=== PATIENT | female | born 1950 | race Caucasian/White ===

== ENCOUNTER → 2016-10-10 | Outpatient (CLI) | payer BC, OTHER ==
[~2016-10-10] MED LIST: CALCIUM/D3 PO; CONJ0.3T3 PO; FOLI400T41 PO; LEVO112T2 PO; LEVO125T72 PO; LUTE20TA PO; MULT-506 PO; SULF500T36 PO
== END | disposition home or self-care (01) ==
LOC: C.PAPS 13:33
PROVIDERS: ATTEND Obstetrics & Gynecology
DX: Z01.419 Encounter for gynecological examination (general) (routine) without abnormal findings (principal)

== ENCOUNTER → 2017-05-02 | Outpatient (CLI) | payer BC, OTHER ==
--- NOTE | 2017-05-02 16:00 | MAMMOGRAPHY REPORT ---
BILATERAL DIGITAL SCREENING MAMMOGRAM WITH CAD: 05/02/2017 CLINICAL HISTORY: Routine screening. Patient has no complaints. TECHNIQUE: Bilateral CC and MLO views were obtained. Current study was also evaluated with a Compute r Aided Detection (CAD) system. COMPARISON: Comparison is made to exams dated: 04/30/2016 mammogram, 04/15/2015 mammogram, 04/14/2014 ma mmogram, 04/13/2013 mammogram, 04/07/2012 mammogram, and 04/05/2011 mammogram - [facility] er. BREAST COMPOSITION: The tissue of both breasts is heterogeneously dense, which may obscure small mas ses. FINDINGS: There is fluctuating nodularity in the upper outer posterior left breast. A few scattered benign-appearing calcifications. No suspicious spiculated or irregular mass, architectural distortio n or cluster of suspicious microcalcifications is seen. IMPRESSION: ACR BI-RADS CATEGORY 1: NEGATIVE There is no mammographic evidence of malignancy. A 1 year screening mammogram is recommended. The pa tient will receive written notification of the results. Approximately 10% of breast cancers are not detected with mammography. A negative mammographic report should not delay biopsy if a clinically suggestive mass is present. Gwendolyn Mckinnon M.D. ay/:05/02/2017 13:56:29 Hotel Recreational Facilities Manager: Manuela Dee, [facility] letter sent: Normal 1/2 BI-RADS Code: ACR BI-RADS Category 1: Negative
== END | disposition home or self-care (01) ==
LOC: C.MAMM 13:22
PROVIDERS: ATTEND Obstetrics & Gynecology
DX: Z12.31 Encounter for screening mammogram for malignant neoplasm of breast (principal)

== ENCOUNTER → 2017-06-03 | Outpatient (CLI) | payer BC, OTHER ==
[2017-06-03 09:38] LABS: BASO % 0.7 %; BASO ABS # 0.05 K/uL (0-0.2); COMPLETE YES; EOS % 1.8 %; HEMATOCRIT 38.9 % (37-47); IG% 0.3 %; LYMPH % 26.5 %; LYMPH ABS # 1.79 K/uL (1.2-3.4); MEAN CELL VOLUME 102.1 fL (80-100); MEAN CORPUSCULAR HEMOGLOBIN 31.2 pg (25-34); MEAN CORPUSCULAR HGB CONC 30.6 g/dl (32-36); MEAN PLATELET VOLUME 10.5 fL (7.4-10.4); MONO % 8.1 %; NEUT % 62.6 %; PLATELET COUNT 326 K/uL (130-400); RED BLOOD COUNT 3.81 M/uL (4.2-5.4); WHITE BLOOD COUNT 6.75 K/uL (4.8-10.8)
[2017-06-03 09:55] LABS: URINE APPEARANCE CLEAR (CLEAR); URINE BILIRUBIN NEG (NEG); URINE COLOR DK YELLOW; URINE EPITHELIAL CELL AUTO >30 /lpf (0-5); URINE NITRITE NEG (NEG); URINE PH 7.5 (4.5-7.5); URINE SPECIFIC GRAVITY 1.016 (1.000-1.030); UROBILINOGEN NEG (NEG)
[2017-06-03 09:56] LABS: MANUAL MICROSCOPIC REQUIRED? NO; REVIEW REQ? NO
[2017-06-03 10:06] LABS: ALT/SGPT 18 U/L (12-78); AST/SGOT 12 U/L (15-37); BLOOD UREA NITROGEN 12 mg/dl (7-18); BUN/CREATININE RATIO 16.9 (10-20); CALCIUM 8.6 mg/dl (8.5-10.1); CARBON DIOXIDE 27 mmol/L (21-32); CHLORIDE 107 mmol/L (98-107); GLUCOSE 92 mg/dl (70-99); SODIUM 140 mmol/L (136-145)
[2017-06-03 10:17] LABS: ALB/GLOB RATIO 1.2 (0.9-2); ALKALINE PHOSPHATASE 62 U/L (45-117); CHOLESTEROL 205 mg/dl (0-200); CHOLESTEROL/HDL RATIO 2.4; HDL CHOLESTEROL 87 mg/dl; LDL CHOLESTEROL CALCULATED 100 mg/dl; TRIGLYCERIDES 89 mg/dl (0-150); VERY LOW DENSITY LIPOPROT CALC 18 mg/dl
== END | disposition home or self-care (01) ==
LOC: C.LAB1850 07:17
PROVIDERS: ATTEND Internal Medicine Pulmonary Disease
DX: K51.90 Ulcerative colitis, unspecified, without complications (principal)

== ENCOUNTER → 2017-06-28 | Outpatient (CLI) | payer BC, OTHER ==
--- NOTE | 2017-06-28 16:32 | DIAGNOSTIC IMAGING REPORT ---
L FOOT MIN 3 VIEWS ROUTINE CLINICAL HISTORY: TOE PAIN pain COMPARISON: None. DISCUSSION: The bones and joint spaces appear intact. There is no evidence of fracture, dislocation or bony disease. There is no evidence for soft tissue swelling. IMPRESSION: Negative study. The above report was generated using voice recognition software. It may contain grammatical, syntax or spelling errors. Electronically signed by: Mars Randall M.D. 06/28/2017 4:31 PM Dictated Date/Time: 06/28/2017 4:29 PM
== END | disposition home or self-care (01) ==
LOC: C.RAD1850 16:16
PROVIDERS: ATTEND Physician Assistant
DX: M79.676 Pain in unspecified toe(s) (principal)

== ENCOUNTER → 2017-10-16 | Outpatient (CLI) | payer BC, OTHER | END | disposition home or self-care (01) | LOC: C.PAPS 14:14 | PROVIDERS: ATTEND Obstetrics & Gynecology | DX: Z01.419 Encounter for gynecological examination (general) (routine) without abnormal findings (principal); Z78.0 Asymptomatic menopausal state ==

== ENCOUNTER → 2018-05-05 | Outpatient (CLI) | payer BC, OTHER ==
--- NOTE | 2018-05-05 15:42 | MAMMOGRAPHY REPORT ---
BILATERAL DIGITAL SCREENING MAMMOGRAM TOMOSYNTHESIS WITH CAD: 05/05/2018 CLINICAL HISTORY: Routine screening. TECHNIQUE: The study was acquired using full field digital technology and interpreted from soft copy. Breast tomosynthesis in addition to standard 2D mammography was performed. Current study was also ev aluated with a Computer Aided Detection (CAD) system. COMPARISON: Comparison is made to exams dated: 05/02/2017 mammogram, 04/30/2016 mammogram, 04/15/2015 m ammogram, 04/14/2014 mammogram, 04/13/2013 mammogram, and 04/07/2012 mammogram - [facility] er. BREAST COMPOSITION: The tissue of both breasts is heterogeneously dense, which may obscure small mass es. FINDINGS: There is fluctuating nodularity in the upper outer posterior left breast. No suspicious spi culated or irregular mass, architectural distortion or cluster of microcalcifications is seen. IMPRESSION: ACR BI-RADS CATEGORY 1: NEGATIVE There is no mammographic evidence of malignancy. A 1 year screening mammogram is recommended.( 019) The patient will receive written notification of the results. Some breast cancers are not detected with mammography. A negative mammographic report should not abhay y biopsy if a clinically suggestive mass is present. Gwendolyn Mckinnon M.D. ay/:05/05/2018 15:00:39 Painter Helper: RT Lenore(Dorothy)(M), [facility] letter sent: Normal 1/2 BI-RADS Code: ACR BI-RADS Category 1: Negative
== END | disposition home or self-care (01) ==
LOC: C.MAMM 13:34
PROVIDERS: ATTEND Obstetrics & Gynecology
DX: Z12.31 Encounter for screening mammogram for malignant neoplasm of breast (principal)

== ENCOUNTER → 2018-05-23 | Outpatient (CLI) | payer BC, OTHER ==
--- NOTE | 2018-05-23 10:55 | DIAGNOSTIC IMAGING REPORT ---
RIGHT KNEE 2 VIEWS HISTORY: RIGHT KNEE DJD/PAIN COMPARISON: Right knee 04/03/2018. FINDINGS: Mild cartilage space narrowing within the medial compartment of the right knee. There are small tricompartmental marginal osteophytes. This is consistent with degenerative change. No fracture or dislocation. 2 small adjacent calcifications medial to the medial femoral condyle. This could be due to an old MCL injury. This also remains unchanged. Mild caudal space narrowing at the patellofemoral joint. IMPRESSION: 1. No acute fracture or dislocation within the right knee. 2. Mild tricompartmental osteoarthritis as described above Electronically signed by: Kali Nova M.D. 05/23/2018 10:53 AM Dictated Date/Time: 05/23/2018 10:39 AM
== END | disposition home or self-care (01) ==
LOC: C.RDSM 11:17
PROVIDERS: ATTEND Physician Assistant
DX: M17.11 Unilateral primary osteoarthritis, right knee (principal)

== ENCOUNTER 2022-03-28 06:39 | Observation (INO) ==
--- NOTE | 2022-02-23 14:15 | PAT Medication Instructions ---
Medication Instructions Date of Service February 23, 2022 Home Medications Medication Instructions Recorded sulfasalazine 500 mg tablet 1 g PO TID #540 tab 10/17/21 calcium carbonate 500 mg calcium (1,250 mg) tablet (Calcium 500) 500 mg PO UD multivitamin (Daily Multi-Vitamin) 1 tab PO QAM folic acid 400 mcg tablet 400 mcg PO UD levothyroxine 112 mcg tablet 112 mcg PO QAM sulfasalazine 500 mg tablet 1 g PO TID kzcgrjmb-bwasdespxq-qi glycn-C 500 mg-400 mg capsule 1 cap PO HS ASK your prescriber and surgeon sulfasalazine 500 mg tablet 1 g PO TID STOP taking 2 weeks before surgery jxikurer-rjaxuyqwbw-[id number] glycn-C 500 mg-400 mg capsule 1 cap PO HS DO NOT take the morning of surgery multivitamin (Daily Multi-Vitamin) 1 tab PO QAM Take morning of surgery With a small sip of water, OTHERWISE NOTHING TO EAT OR DRINK AFTER MIDNIGHT: levothyroxine 112 mcg tablet 112 mcg PO QAM Take evening before surgery calcium carbonate 500 mg calcium (1,250 mg) tablet (Calcium 500) 500 mg PO UD folic acid 400 mcg tablet 400 mcg PO UD Other Notes If you have any questions please call us at [phone] or [phone] or [phone] or [phone]
--- NOTE | 2022-03-01 12:54 | Anesthesiology Consultation ---
Date of Service March 01, 2022 Assessment & Plan (1) Encounter for pre-operative examination: COVID screening: Per assessment on 03/01: No known COVID-19 positive contacts or current COVID-19 related symptoms. Travel screen negative x2+ weeks. Patient vaccinated. Surgeon arranging preop COVID testing. Awaiting results. Chart Review Chart Review: Acceptable Risk for Surgery and Patient seen in Pre Admission Testing Teaching & Discussion Pre-Anesthesia Teaching/Discussion Notes: Instructed NPO after midnight before surgery,except medications with 15 cc of water. Medication instructions provided according to the PAT guidelines. History Surgery Operation Date: 03/28/22 07:00 Proposed Procedures p Right Total Knee Arthroplasty - Bertram Maldonado MD Height/Weight Height: 5 ft 1 in Weight: 82.2 kg Allergies Allergy/AdvReac Type Severity Reaction Status Date / Time Sulfa (Sulfonamide Allergy Mild Hives Verified 02/27/22 10:09 Antibiotics) Medications Home Medications Medication Instructions Recorded Confirmed Last Taken multivitamin (Daily Multi-Vitamin) 1 tab PO QAM 05/13/19 02/23/22 10/09/21 folic acid 400 mcg tablet 400 mcg PO UD tab 06/30/19 02/23/22 10/09/21 levothyroxine 112 mcg tablet 112 mcg PO QAM 09/22/21 02/23/22 10/09/21 sulfasalazine 500 mg tablet 1 g PO TID #540 tab 10/17/21 02/23/22 Unknown gbbpaomc-mdkrildvdh-gg glycn-C 500 1 cap PO HS 02/23/22 02/23/22 Unknown mg-400 mg capsule Calcium Citrate + D PO DAILY 02/26/22 Unknown Past Medical History Medical History Chronic back pain Degenerative disc disease Hypothyroidism Malignant neoplasm of thyroid gland 2002 Plantar fasciitis Spinal stenosis Ulcerative colitis Reason for sulfasalazine Exercise / Class Metabolic Activity II 4-5 Yardwork/Stairs/Walk up hill (one FS (no CP, no SOB)) Past Family History Family History Brother Lymphoma Mother Diabetes Atrial fibrillation Osteoporosis Denies family history of Ovarian cancer Breast cancer Colorectal cancer Past Surgical History Surgical History (Updated 03/01/22 @ 13:43 by Celina Rita) History of colonoscopy History of lumbar laminectomy + fusion x2 levels History of oophorectomy unilateral History of thyroid surgery partial thyroidectomy History of tubal ligation S/P carpal tunnel release S/P cervical spinal fusion x2 levels Past Anesthesia History No Hx of Anesthesia Complications and No Family Hx of Anesthesia Complications History of PONV No Hx of PONV and Hx of Motion Sickness (occasional) Social History Smoking Status: Never smoker Do You Dip or Chew Tobacco: No Hx Alcohol Use: Yes (1 DRINK PER DAY) Alcohol type: wine and hard liquor alcohol intake frequency: a few times a week Hx Substance Use: No substance use type: does not use Review of Systems Patient denies chest pain, shortness of breath, dyspnea on exertion, fever, chills, cough, wheezing, palpitations. Physical Exam Vital Signs VITALS BP 128/71 P 89 TEMP 99.0 SP02 96%RA RESP 16 PHYSICAL Mildly decreased cervical extension range of motion. Full TMJ range of motion. TMD 3 finger breaths Mallampati Score 2 Dentition: intact, + several crowns Lungs: clear throughout to auscultation Cardiac: regular rate and rhythm, no murmurs noted Spine: normal Carotid arteries: negative bruit Extremities: no edema Lab Results Anesthesia Preop Results Results Anesthesia Widget: WBC 8.06 K/uL (4.8-10.8) 03/01/22 Hgb 13.0 g/dL (12.0-16.0) 03/01/22 Hct 38.8 % (37-47) 03/01/22 Plt 347 K/uL (130-400) 03/01/22 Na 138 mmol/L (136-145) 03/01/22 K 3.7 mmol/L (3.5-5.1) 03/01/22 Cl 104 mmol/L (98-107) 03/01/22 CO2 28 mmol/L (21-32) 03/01/22 BUN 14 mg/dl (6-23) 03/01/22 Creat 0.78 mg/dl (0.6-1.2) 03/01/22 Glucose Level 113 mg/dl (70-99(Fasting)) H 03/01/22 PT 10.8 Seconds (9.0-12.0) 03/01/22 PTT 25.2 Seconds (21.0-31.0) 03/01/22 INR 1.0 (0.9-1.1) 03/01/22 Blood Type O Positive 03/01/22 Antibody Screen NEGATIVE 03/01/22 Testing Electrocardiogram Date: 03/01/22 NSR at 80bpm. AILIN. unconfirmed report. Chest X-Ray Date: 03/01/22 FINDINGS: No pneumothorax. No pleural effusions. The heart is normal in size. No focal lung consolidations to suggest pneumonia. No evidence for pulmonary edema. Cervical spinal fusion hardware is noted. IMPRESSION: No acute process.
--- NOTE | 2022-03-24 18:07 | History and Physical Report ---
DATE OF ADMISSION: 03/28/2022. CHIEF COMPLAINT: Right knee pain. HISTORY OF PRESENT ILLNESS: The patient is a 71-year-old white female who presents specifically for surgical treatment of her right knee. She has a 4-year history of gradually increasing right knee pa in and discomfort. She has been treated at [facility] by Dr. Briones. She walters s had gel shots and steroid shots, which she have just become less successful over time. The last sh ot really did not help much at all. She describes mostly the pain is in the anteromedial side of her knee. Increased with weightbearing. She limps more as the day goes on. Of note, the patient's had one knee replacement by Dr. Perez, one by Dr. Briones. PAST MEDICAL HISTORY: Significant for: 1. Ulcerative colitis. 2. Plantar fasciitis. 3. Back pain. 4. Obesity with a BMI of 34. 5. Hypertension. 6. Elevated cholesterol. 7. Hypothyroidism. PAST SURGICAL HISTORY: Includes, 1. Cervical fusion. 2. Lumbar fusion. 3. Partial thyroidectomy. ALLERGIES: BEE STINGS AND SULFA. CURRENT MEDICATIONS: 1. Levothyroxine. 2. Sulfasalazine. 3. . 4. Folic acid. 5. Multivitamin. 6. Calcium . SOCIAL HISTORY: A 72-year-old female. 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 She is . Two children. One drink per day. She does not smoke. FAMILY HISTORY: Significant for lymphoma. REVIEW OF SYSTEMS: Significant for ulcerative colitis. Denies any chest pain or shortness of breath . No history of DVT or PE. PHYSICAL EXAMINATION: GENERAL: A pleasant, healthy middle-aged female looks to be in pretty good health. HEENT: Benign. NECK: Supple. No lymphadenopathy. LUNGS: Clear to auscultation. HEART: Regular rate and rhythm. ABDOMEN: Soft, nontender, nondistended. EXTREMITIES: Grossly neurovascularly intact except as follows. Examination of the right knee reveals the patient ambulates with a bit of an antalgic gait. She has varus alignment to her knee. She has bony hypertrophy medially. She has a varus thrust with weightb earing. Small knee effusion. Range of motion is 5 degrees to 120 degrees. No instability. No pain with hip motion. X-RAYS: X-rays of the right knee reveal advanced right knee degenerative joint disease. She has com plete loss of medial joint space. She has subchondral sclerosis. She has loose bodies in the medial gutter. She has patellofemoral arthritis. Significant posterior osteophytes. ASSESSMENT: A 72-year-old white female with advanced right knee tricompartment degenerative joint di sease. She has failed conservative treatment. She would like to have her knee fixed. She has sever al events coming up specifically a cruise that she be able to walk more for. PLAN: We are going to proceed with right knee replacement. The risks and benefits of this procedure were explained to the patient include but not limited to DVT, PE, , infection, neurological inj ury, vascular injury, bleeding problem, pain, limited range of motion, stiffness, failure to relieve symptoms, incomplete relief of symptoms, need for further surgery in the future. The patient underst ands and desires to proceed. Informed consent was obtained. Due to her ulcerative colitis, we will likely make sure there is antibiotics in the cement due to her increased risk of infection along with her obesity. She has other comorbidities including hypertens ion, elevated cholesterol, and hypothyroidism. We will manage these postoperatively. She is planning to be discharged to home using [facility] program. She is considering joo abilitation. We will see how her stay in the hospital is. Job ID: [id number]
[~2022-03-28 06:39] MED LIST changes: +ACETAMINOPHEN 500 MG TAB PO SCH; +BUPIVACAINE 0.5 % 5 MG/1 ML PF 10ML VIAL ONE; +BUPIVACAINE LIPOSOME/PF 266 MG, BUPIVACAINE/EPINEPHRINE 50 ML, SODIUM CHLORIDE 0.9% 30 ... INFIL SCH; -CALCIUM/D3 PO; -CONJ0.3T3 PO; +FAMOTIDINE 20 MG TAB PO SCH; -FOLI400T41 PO; -LEVO112T2 PO; -LEVO125T72 PO; +LR 500ML BOLUS, THEN 15ML/HR IV SCH; +LR 60ML/HR IV SCH; -LUTE20TA PO; +METOCLOPRAMIDE HCL 10 MG TABLET PO SCH; -MULT-506 PO; +ROPIVACAINE 0.5% 5 MG/ML 30 ML VIAL ONE; -SULF500T36 PO; +TRANEXAMIC ACID 1,000 MG **IV Intra-op IV SCH; +ceFAZolin 2000MG 2,000 MG/15 ML SYR IV SCH
--- NOTE | 2022-03-28 06:55 | History & Physical Bridge Note ---
Date of Service March 28, 2022 History & Physical Bridge Note I have examined the patient, reviewed the History & Physical and in the interval since the performance of the History & Physical I have noted the following changes of clinical significance: no changes noted
[2022-03-28] MEDS ORDERED: MIDAZOLAM HCL 1 MG/ML 2ML VIAL ONE (07:38)
[2022-03-28] MEDS ORDERED: fentaNYL citrate 100 MCG/2 ML VIAL ONE (07:38)
[2022-03-28] MEDS ORDERED: fentaNYL citrate 100 MCG/2 ML VIAL IV PRN (08:03)
[2022-03-28] MEDS ORDERED: ONDANSETRON INJ 2 MG/ML 2 ML VIAL IV PRN ×2 (08:03→12:19)
[2022-03-28] MEDS ORDERED: ePHEDrine sulfate 50 MG/ML AMP IV PRN (08:03)
[2022-03-28] MEDS ORDERED: ATROPINE SULFATE 0.1 MG/ML 10ML SYR IV PRN (08:03)
[2022-03-28] MEDS ORDERED: BUPIVACAINE/EPINEPHRINE 0.25% 1:200,000 30 ML VIAL ONE (08:51)
[2022-03-28] MEDS ORDERED: SODIUM CHLORIDE 0.9% PF 50 ML VIAL ONE (08:51)
[2022-03-28] MEDS ORDERED: BUPIVACAINE LIPOSOME 1.3% 266 MG/20 ML VIAL ONE (08:52)
[2022-03-28] MEDS ORDERED: VANCOMYCIN HCL 1000MG/20ML VIAL ONE (08:58)
[2022-03-28] MEDS ORDERED: ONDANSETRON INJ 2 MG/ML 2 ML VIAL ONE (09:17)
[2022-03-28] MEDS ORDERED: PROPOFOL IV EMULSION 10 MG/ML 20 ML VIAL IV ONE (09:17)
[2022-03-28] MEDS ORDERED: LIDOCAINE 2% 2 ML VIAL/AMP(20MG/ML) INFIL ONE (09:17)
--- NOTE | 2022-03-28 10:56 | Operative Report ---
PG Post Operative Report Pre & Post Diagnosis Operation Date: 03/28/22 08:50 Pre-Op Diagnosis: Degenerative Joint Disease Right Knee Post-Op Diagnosis: Degenerative Joint Disease Right Knee I identified the patient and participated in the time-out.: Yes Procedure Operation Date: 03/28/22 08:50 Actual Procedures p Right Total Knee Arthroplasty(Right) - Bertram Maldonado MD Surgeon Bertram Maldonado MD Motor Racer Kosta English PA-C Estimated Blood Loss 50 Findings Consistent with Post-Op Diagnosis Operative findings revealed advanced right knee DJD with extensive grade 4 qbgr-ju-hdhd disease and eburnation of the medial compartment. She had less severe grade 4 disease at the lateral and patellofemoral compartments. She did have full-thickness cartilage loss there as well. Moderate-sized joint effusio n. She had a varus deformity to her knee. Fluids 1400 cc Specimens Right knee sent for pathology Drains None Anesthesia Type Spinal MAC Complications none Disposition Accompanied Patient To Recovery: No Indications Patient is 72-year-old fairly active female has had a fairly long history of bilateral knee pain discomfort right side greater than left. She been through extensive conservative treatment over the years which became less successful over time. She elected proceed with total knee arthroplasty. Description of Procedure Operative implants consist of: 1. Biomet Vanguard size 60 right posterior stabilized femoral component. 2. Biomet size 63 tibial tray. 3. 12 mm posterior stabilized polyethylene insert. 4. 25 x 8 all Paller patella. The patient was taken the operating, identified, placed on the operating table supine position protectors were properly padded. IV antibiotics tried by anesthesia team. Spinal anesthetic and abductor canal block had been provided in the holding area. Claros catheter was placed in sterile fashion. Right factor was then placed in the right lower extremities and prepped and draped in usual sterile fashion. The right leg was elevated exsanguinated with use of an Esmarch i and the tourniquet was set at 300 mmHg. An anterior approach of the right knee was then performed through a longitudinal incision centered over the patella. Sharp dissection was carried through subcutaneous tissue down the extensor mechanism. Medial parapatellar arthrotomy incision was made. Some subperiosteal dissection was carried out medially. The fat pad was resected from Neath patella tendon. Lateral patellofemoral ligament was released. Patella subluxated laterally and the knee was flexed. The osteophytes were taken off distal femur. The ACL and PCL were then released from distal femur the tibia subluxated anteriorly. The external treatment line jig was then placed in the interface the tibia and adjusted 14 mm medially. Proximal tibial cut was made removed by millimeter bone from most deficient aspect medial tibial plateau. Some osteophytes were taken off medial and posterior medially. The tibia was then sized to a size 63. Attention drawn the femur. The distal femur was then with a sharp drill. Intramedullary guide was placed. This was a 5 degree valgus cutting guide. The distal femoral cutting block was pinned in place but distal femoral cut was made to take an additional 3 mm bone off distal femur. The femur was then sized to a size 60. The AP cutting block was pinned parallel to the epicondylar axis which was 3 degrees of external rotation. The anterior cut, anterior chamfer, posterior cut, posterior chamfer cuts were made. The box cutting guide was placed in a just slight lateral box cut was made. The knee was flexed. The remnants of the medial and lateral meni sci were excised. The osteophyte taken off the posterior aspect the femur. A trial femoral component was placed. The tibial tray was pinned in maximum external rotation and the drill and stem punch used to create defect in proximal tibia for the tibial tray. Knee was then trialed and the 12 mm insert fit most appropriately. Attention drawn the patella. Patella was then of all soft tissues. Patella thickness measured 20 mm in thickness was cut down to 13. Her kneecap was quite small. Sized to a size 25. The lug holes were drilled for the 25 kneecap. The lateral osteophyte was removed. Patella button was placed. Knee was taken through range of motion patella tracked nicely with no thumbs test. Attention drawn to place the permanent components. Nupathe all trial components were removed. Bone plug was placed in the distal femur limit blood loss. Double batch Palacos G cement was mixed. I did add an additional gram of vancomycin due to her history of ulcerative colitis and immunocompromise status. He Biomet Vanguard size 60 right posterior stabilized femoral component, size 63 tibial tray, a 12 mm posterior stabilized polyethylene insert, and a 25 x 8 all Paller patella were then cemented in place. Knee was brought out into full extension total cement hardened. Final cement check was then performed. The pericapsular tissues were injected with total 100 cc of combination of 20 cc of Exparel, 30 cc normal saline, 50 cc of quarter percent Marcaine with epinephrine. Patient did receive 1 g tranexamic acid. The tourniquet was then let down for final turn time of 54 minutes. Hemostasis reduced electrocautery. Extensor mechanism closed with combination 1 PDS suture #1 Vicryl suture in utuajy-ok-vzcow fashion. Extensor mechanism checked found to be intact the subcutaneous tissue then closed with 2 Dexon suture in buried fashion skin was closed skin allie. Leg was then cleaned and dried and a sterile dressing was Xeroform, 4 fours, sterile cast padding, Jg bandage were applied. Patient was then transferred to the recovery room in stable condition. Patient tolerated procedure well and there were no complications. Kosta English, my physician hearing aid assistant, was present for the entire procedure. His assistance was essential and required for appropriate patient positioning, prepping and draping, surgical exposure, performing the technical details of the operation, placement the implants, closure of the wound, and placement of the sterile bandage. I attest to the content of the Intraoperative Record and any orders documented therein. Any exceptions are noted below.
--- NOTE | 2022-03-28 11:20 | XRay Report ---
XR knee RT 1 or 2V routine CLINICAL HISTORY: Surgical Post Op TECHNIQUE: 2 views of the right knee were obtained. Comparison: None available at the time of this dictation. FINDINGS: Patient is status post total knee arthroplasty with expected postsurgical changes including soft tiss ue swelling, subcutaneous emphysema, and surgical staple placement. No periarticular lucency or hardw are fracture is seen. IMPRESSION: Expected postoperative appearance status post placement of total knee arthroplasty. ACT 112: Negative or not required by law. Electronically signed by: Sg Salguero M.D. 03/28/2022 11:19 AM
[2022-03-28] MEDS ORDERED: GLYCOPYRROLATE 0.2 MG/ML VIAL ONE (11:43)
[2022-03-28] MEDS ORDERED: PHENYLEPHRINE 100MCG/ML 5ML SYR ONE (11:43)
[2022-03-28] MEDS ORDERED: ALUMINUM/MAGNESIUM SUSP 30 ML UDC PO PRN (12:19)
[2022-03-28] MEDS ORDERED: HYDROmorphone INJ 0.5 MG/0.5 ML SYR IV PRN (12:19)
[2022-03-28] MEDS ORDERED: METOCLOPRAMIDE HCL INJ 5 MG/ML 2 ML VIAL IV PRN (12:19)
[2022-03-28] MEDS ORDERED: MAGNESIUM HYDROXIDE SUSP 30 ML UDC PO PRN (12:19)
[2022-03-28] MEDS ORDERED: bisacodyL 10 MG SUPP PR PRN (12:19)
[2022-03-28] MEDS ORDERED: SODIUM CHLORIDE 0.9% 1000ML 1,000 ML IV SCH (12:19)
[2022-03-28] MEDS ORDERED: NALOXONE HCL 0.4 MG/1 ML VIAL/CARP IV PRN (12:19)
[2022-03-28] MEDS: KETOROLAC TROMETHAMINE 15 MG/ML VIAL IV SCH ×2 (12:39→18:11)
[2022-03-28] MEDS: oxyCODONE HCL IR 5 MG TAB (IMMEDIATE RELEASE) PO PRN ×2 (12:39→19:46)
--- NOTE | 2022-03-28 12:55 | Anesthesiology Progress Note ---
Date of Service March 28, 2022 Anesthesia Post Procedure Vital Signs Vital Signs: Temp Pulse Pulse Resp BP BP Pulse Ox 03/28/22 12:43 98.4 F 73 18 150/79 H 98 03/28/22 12:15 97.9 F 69 18 142/84 H 93 03/28/22 11:45 97.9 F 67 18 132/71 93 03/28/22 11:25 71 19 125/74 94 03/28/22 11:15 97.7 F 71 18 131/69 93 03/28/22 11:05 69 17 137/69 93 03/28/22 10:55 74 17 133/67 97 03/28/22 10:48 97.5 F L 79 16 131/70 92 03/28/22 07:01 98.8 F 80 20 146/74 H 95 Pain Intensity Right Knee: Pain Intensity: 3 Transfer of Care Handoff Completed per policy Notes Mental Status: alert / awake / arousable and participated in evaluation Patient Amnestic to Procedure: Yes Nausea / Vomiting: adequately controlled Pain: adequately controlled Airway Patency, RR, SpO2: stable & adequate BP & HR: stable & adequate Hydration State: stable & adequate Neuraxial Anesthesia: was administered and sensory block is resolving Anesthetic Complications: no major complications apparent and Pt Satisfied with anesthetic care
[2022-03-28] MEDS ORDERED: dexAMETHasone 10 MG in SYRINGE 0 ML IV SCH (13:00)
[2022-03-28] MEDS: ACETAMINOPHEN 500 MG TAB PO SCH ×2 (14:02→20:19)
[2022-03-28] MEDS: sulfaSALAzine 500 MG TABLET PO SCH ×2 (14:02→20:19)
--- NOTE | 2022-03-28 14:19 | Progress Notes ---
DATE OF SERVICE: 03/28/2022. SUBJECTIVE: A 72-year-old female postop from a right knee replacement. She is doing pretty well. P ain has been controlled so far. No chest pain or shortness of breath. Not feeling dizzy or lighthea ded. OBJECTIVE: VITAL SIGNS: Temperature 36.9. Vital signs are stable. PHYSICAL EXAMINATION: GENERAL: Shows a pleasant middle-aged female. She is sitting up in bed and looks pretty comfortable . EXTREMITIES: Examination of the right leg reveals the dressing to be clean, dry and intact. She can dorsiflex and plantarflex her foot appropriately. She is neurologically intact. X-RAYS: X-rays of the right knee from recovery room are reviewed. It shows a right cemented posteri or stabilized total knee arthroplasty. Components looked to be in good position. No signs of proble ms. ASSESSMENT: A 72-year-old female postoperative from a right knee replacement. She is doing well. P ain is controlled. She is neurologically intact. PLAN: 1. DVT prophylaxis includes thigh-high TEDs, SCDs, and aspirin twice a day. 2. PT, OT, weightbear as tolerated. Right total knee protocol. 3. Pain control, doing okay with current pain regimen. 4. IV antibiotics x24 hours. 5. Disposition: Plan to discharge her home with some home health likely tomorrow if she does okay i n therapy and her pain is controlled. Job ID: [id number]
[2022-03-28] MEDS ORDERED: FOLIC ACID 400 MCG TAB PO SCH (16:00)
[2022-03-28] MEDS ORDERED: TRANEXAMIC ACID / 0.7% NACL 1,000 MG/100 ML BAG IV SCH (16:45)
[2022-03-28] MEDS: ASCORBIC ACID 500 MG TAB PO SCH (16:54)
[2022-03-28] MEDS: ceFAZolin 2000MG 2,000 MG/15 ML SYR IV SCH (16:57)
[2022-03-28] MEDS: DOCUSATE SODIUM 100 MG CAP PO SCH (20:18)
[2022-03-28] MEDS: TAPENTADOL HCL ER 50 MG TABCR PO SCH (20:19)
[2022-03-28] MEDS: ASPIRIN 81 MG ECTAB PO SCH (20:19)
[2022-03-28] MEDS ORDERED: SENNA 8.6 MG TAB PO SCH (21:00)
[2022-03-29] MEDS: KETOROLAC TROMETHAMINE 15 MG/ML VIAL IV SCH ×2 (00:43→05:35)
[2022-03-29] MEDS: ceFAZolin 2000MG 2,000 MG/15 ML SYR IV SCH (00:43)
[2022-03-29] MEDS: ACETAMINOPHEN 500 MG TAB PO SCH ×2 (05:36→13:55)
[2022-03-29] MEDS ORDERED: LEVOTHYROXINE SODIUM 112 MCG TABLET PO SCH (06:30)
[2022-03-29 06:48] LABS: Hematocrit (blood only) 28.8 % (37-47); Hemoglobin 9.5 g/dL (12.0-16.0); Mean Corpuscular Hemoglobin 33.3 pg (25-34); Mean Corpuscular Volume 101.1 fL (80-100); Mean Platelet Volume 10.1 fL (7.4-10.4); Platelet Count 254 K/uL (130-400); RDW Coefficient of Variation 13.2 % (11.5-14.5); Red Blood Count 2.85 M/uL (4.2-5.4); White Blood Count 11.02 K/uL (4.8-10.8)
[2022-03-29 07:25] LABS: BUN Creatinine Ratio 17.1 (10-20); Creatinine Clr Calc Pharmacy 70.2 ml/min; Est GFR (African American) 98.9 ml/min; Est GFR (Non-African American) 85.4 ml/min
[2022-03-29] MEDS: DOCUSATE SODIUM 100 MG CAP PO SCH (09:00)
[2022-03-29] MEDS: sulfaSALAzine 500 MG TABLET PO SCH ×2 (09:00→13:55)
[2022-03-29] MEDS: TAPENTADOL HCL ER 50 MG TABCR PO SCH (09:00)
[2022-03-29] MEDS: ASCORBIC ACID 500 MG TAB PO SCH (09:00)
[2022-03-29] MEDS: ASPIRIN 81 MG ECTAB PO SCH (09:00)
[2022-03-29] MEDS ORDERED: MULTIVITAMIN TAB PO SCH (09:00)
[2022-03-29] MEDS: oxyCODONE HCL IR 5 MG TAB (IMMEDIATE RELEASE) PO PRN (10:26)
--- NOTE | 2022-03-29 11:07 | Progress Notes ---
DATE OF SERVICE: 03/29/2022. SUBJECTIVE: A 72-year-old female, now postoperative day 1 from a right knee replacement. She is doi ng pretty well. Pain has been controlled overnight. No chest pain or shortness of breath. Not feel ing dizzy or lightheaded. OBJECTIVE: VITAL SIGNS: Temperature 36.6. Vital signs are stable. PHYSICAL EXAMINATION: GENERAL: Shows a pleasant middle-aged female. She is sitting up in bed this morning and looks prett y comfortable. EXTREMITIES: Examination of the right leg reveals the dressing to be clean, dry and intact. She can dorsiflex and plantarflex her foot appropriately. She is neurologically intact. LABORATORY DATA: Hemoglobin 9.5. Hematocrit 28.8. White cell count 11.02. Electrolytes are stable . ASSESSMENT: A 72-year-old female postoperative day 1 from a right knee replacement, doing pretty wel l. Pain has been controlled. She is neurologically intact. PLAN: 1. DVT prophylaxis including thigh-high TEDs, SCDs, and aspirin twice a day. 2. PT, OT, weightbear as tolerated. Total knee protocol. 3. Pain control, doing okay with current pain regimen. 4. Disposition: We are going to hopefully discharge her to home later today if she does okay in the rapy. Job ID: [id number]
--- NOTE | 2022-04-01 07:17 | Discharge Summary ---
Date of Service April 01, 2022 Discharge Data Procedures Performed Operation Date: 03/28/22 08:50 Actual Procedures p Right Total Knee Arthroplasty(Right) - Bertram Maldonado MD Hospital Course (1) Status post total right knee replacement: This is a 72 year old patient admitted on 03/28/22 and underwent total knee arthroplasty. She tolerated the procedure well and there were no complications. Transferred to the PACU post op and later to the orthopedic floor for further care. She was given ancef for antibiotic prophylaxis. She was also given SRINATH stockings, SCDs, and aspirin for DVT prophylaxis. Hemoglobin, hematocrit, and vital signs were monitored during her hospital stay and remained stable. Did not require any blood transfusions. There were no complications during her hospital stay. By post op day #1 the patient was tolerating a regular diet, pain was reasonably controlled with oral pain medicine, and she was participating in physical therapy. On post op day #1 the patient was discharged home and set up with home health care. She was given printed discharge instructions including prescriptions for extra strength tylenol, aspirin, zofran, and oxycodone. Kennedy nue physical therapy, weight bearing as tolerated. Continue SRINATH stockings. Follow up approximately 2 weeks post op or sooner if there are problems or concerns. Coding Level of Care Code None Diagnoses Status post total right knee replacement Z96.651
== END 2022-03-29 16:15 | disposition home health service (06) ==
LOC: 3E 06:39 → ASU 06:39